=== PATIENT | male | born 1990 | race Caucasian/White ===

== ENCOUNTER 2022-05-03 06:48 | Emergency (ER) | payer OTHER ==
[~2022-05-03] VITALS: Ht 165.1 cm; Wt 68.0 kg
--- NOTE | 2022-05-03 07:13 | NUR ---
TO ER BED 2. BIBSELF C/O SORE THROAT FOR THE PAST 3 DAYS. PT IS ALERT AND ORIENTED. RR EVEN AND NONLABORED. CONNECTED TO MONITOR. VSS
[2022-05-03] MEDS ORDERED: IV NS 0.9% 1,000 ML IV ONE (07:30)
[2022-05-03] MEDS ORDERED: DEXAMETHASONE SOD PHOSPHATE 10 MG/ML VIAL IV ONE (07:30)
[2022-05-03] MEDS ORDERED: DEXAMETHASONE SOD PHOSPHATE 10 MG/ML VIAL ONE (07:32)
[2022-05-03] MEDS ORDERED: IBUP-1957 PO (07:42)
[2022-05-03] MEDS ORDERED: ACET-2605 PO (07:42)
[2022-05-03] MEDS ORDERED: PENICILLIN G BENZATHINE 2.4 MMU/4 ML ML IM ONE ×2 (07:48→08:00)
--- NOTE | 2022-05-03 07:57 | NUR ---
STREP THROAT CULTURE COLLECTED AND SENT TO LAB.
--- NOTE | 2022-05-03 08:18 | NUR ---
REFUSED COVID TEST, AWARE
--- NOTE | 2022-05-03 08:30 | NUR ---
PO CHALLENGE, TOLERATED.
--- NOTE | 2022-05-03 08:30 | NUR ---
Patient discharged to home in stable condition. Written and verbal after care instructions given. Patient verbalizes understanding of instruction.
[2022-05-03 08:31] VITALS: BP 119/72
== END 2022-05-03 08:34 | disposition home or self-care (01) ==
LOC: ER 06:51
DX: J02.9 Acute pharyngitis, unspecified (principal); Z60.2 Problems related to living alone
CPT/HCPCS: 99284; 96374; 96361; 96372; J0558; J1100; J7030